=== PATIENT | female | born 2000 | race Caucasian/White ===

== ENCOUNTER 2020-09-22 20:11 | Emergency (ER) | payer OTHER ==
[~2020-09-22] VITALS: Ht 152.4 cm; Wt 55.5 kg
[2020-09-22] MEDS ORDERED: HYDROcodone/acetaminophen 5mg/325mg tablet PO ONE (21:10)
[2020-09-22] MEDS ORDERED: ondansetron 4mg rapidly disintigrating tab PO ONE (21:10)
[2020-09-22] MEDS ORDERED: ONDA4TAB6 PO (21:13)
[2020-09-22] MEDS ORDERED: HYDR-3965 PO (21:13)
[2020-09-22 21:45] VITALS: BP 120/75
== END 2020-09-22 21:46 | disposition home or self-care (01) ==
LOC: ER 20:12
DX: S52.591A Other fractures of lower end of right radius, initial encounter for closed fracture (principal); F17.200 Nicotine dependence, unspecified, uncomplicated; Z79.899 Other long term (current) drug therapy; W18.39XA Other fall on same level, initial encounter; Y93.23 Activity, snow (alpine) (downhill) skiing, snowboarding, sledding, tobogganing and snow tubing; Y92.89 Other specified places as the place of occurrence of the external cause; Y99.8 Other external cause status
CPT/HCPCS: 29125; 73110; 99283

== ENCOUNTER 2020-12-08 00:11 | Emergency (ER) | payer OTHER ==
[~2020-12-08] VITALS: Ht 180.3 cm; Wt 57.6 kg
[~2020-12-08 00:11] MED LIST: ONDA4TAB6 PO
[2020-12-08 00:19] VITALS: BP 138/72
[2020-12-08] MEDS ORDERED: LIDOcaine 1% W/epiNEPHrine 1:200,000 10ml vial IJ ONE (01:00)
== END 2020-12-08 02:00 | disposition home or self-care (01) ==
LOC: ER 00:12
DX: S06.0X0A Concussion without loss of consciousness, initial encounter (principal); S01.01XA Laceration without foreign body of scalp, initial encounter; F10.129 Alcohol abuse with intoxication, unspecified; Z79.899 Other long term (current) drug therapy; W01.0XXA Fall on same level from slipping, tripping and stumbling without subsequent striking against object, initial encounter; Y93.89 Activity, other specified; Y92.89 Other specified places as the place of occurrence of the external cause; Y99.8 Other external cause status; Y90.9 Presence of alcohol in blood, level not specified
CPT/HCPCS: 12001; 99284